=== PATIENT | born 1955 | race Caucasian/White ===

== ENCOUNTER → 2024-03-27 09:52 | Outpatient (BNVA) | payer MEDICARE, SELFPAY | PROVIDERS: Visit Provider Specialist | DX: R42 Dizziness and giddiness (principal); I63.219 Cerebral infarction due to unspecified occlusion or stenosis of unspecified vertebral artery; E11.40 Type 2 diabetes mellitus with diabetic neuropathy, unspecified; F17.200 Nicotine dependence, unspecified, uncomplicated; Z79.4 Long term (current) use of insulin | CPT/HCPCS: 99204; 99205 ==